=== PATIENT | female | born 1935 | race Caucasian/White ===

== ENCOUNTER → 2017-01-01 | Outpatient (CLI) | payer MEDICARE, OTHER ==
[2017-01-01 08:16] LABS: MEAN CORPUSCULAR HEMOGLOBIN 30.3 pg (27.0-33.0); MEAN CORPUSCULAR VOLUME 94.5 fl (80.0-96.0); RED CELL DISTRIBUTION WIDTH 11.9 % (11.5-14.5); WHITE BLOOD COUNT 6.9 K/mm3 (4.0-10.0)
[2017-01-01 08:46] LABS: ALBUMIN 3.5 GM/DL (3.2-5.2); ALBUMIN/GLOBULIN RATIO 1.21 (1.00-1.93); BILIRUBIN,TOTAL 0.5 MG/DL (0.2-1.0); CALCIUM LEVEL 8.2 MG/DL (8.8-10.2); CREATININE FOR GFR 1.48 MG/DL (0.55-1.02); GLOMERULAR FILTRATION RATE 36.2 (>39); POTASSIUM SERUM 4.4 MEQ/L (3.5-5.1); TOTAL PROTEIN 6.4 GM/DL (6.4-8.2)
== END ==
LOC: M LAB 07:27
PROVIDERS: ATTEND Family Medicine
DX: R19.04 Left lower quadrant abdominal swelling, mass and lump (principal); K57.32 Diverticulitis of large intestine without perforation or abscess without bleeding; Z79.899 Other long term (current) drug therapy

== ENCOUNTER → 2017-01-07 | Outpatient (CLI) | payer MEDICARE, OTHER ==
[~2017-01-07] MED LIST: GASTROGRAFIN SOLUTION 30ML (Q9963) As Ordered ONE; ISOVUE-370 76% 100ML VIAL (Q9967) As Ordered ONE
--- NOTE | 2017-01-07 16:49 | REP ---
CT ABDOMEN: REASON: History of left lower quadrant mass. COMPARISON EXAMINATION: None. CONTRAST UTILIZED: 100 mL Isovue-370. The precontrast enhanced portion of the examination shows the hepatic and splenic densities to be within normal limits. There is no cholelithiasis or nephrolithiasis. Contrast enhanced portion of the examination shows the liver, gallbladder, spleen, pancreas, adrenal glands, and kidneys to be within normal limits. There is an incidental centimeter sized cyst in the right kidney and an incidental subcentimeter sized cyst in the left kidney. The abdominal aorta and paraaortic regions are within normal limits for the patients age. Calcific atherosclerotic changes are seen in the abdominal aorta. There is no evidence of an intraabdominal mass or adenopathy. There is no free fluid or free air. The bowel loops and their mesenteries are within normal limits. CT PELVIS: High in the left adnexa along the pelvic sidewall there is a 2 cm sized low density structure which has water Hounsfield unit readings. There is extensive sigmoid colon diverticulosis. The bowel loops and mesenteries are otherwise unremarkable. No free fluid or free air is seen in the pelvis. Bone window technique throughout the exam shows age related spinal degenerative changes. IMPRESSION: 1. There is a small cyst in the pelvis as described above which is possibly of ovarian origin. Exact etiology is uncertain. Consider pelvic ultrasonography. 2. Sigmoid colon diverticulosis. 3. Incidental bilateral renal cysts. 4. Other findings as described above. Signed by Felipe Patel DO 01/08/2017 04:23 P
== END ==
LOC: M RAD 14:19
PROVIDERS: ATTEND Family Medicine
DX: R19.04 Left lower quadrant abdominal swelling, mass and lump (principal); K57.30 Diverticulosis of large intestine without perforation or abscess without bleeding
CPT/HCPCS: 74178; Q9963; Q9967

== ENCOUNTER → 2018-02-18 | Outpatient (CLI) | payer MEDICARE, OTHER ==
[2018-02-18 09:19] LABS: HEMATOCRIT 39.7 % (36.0-47.0); HEMOGLOBIN 12.6 g/dl (12.0-15.5); MEAN CORPUSCULAR HEMOGLOBIN 30.4 pg (27.0-33.0); MEAN CORPUSCULAR HGB CONC 31.7 g/dl (32.0-36.5); MEAN CORPUSCULAR VOLUME 95.7 fl (80.0-96.0); PLATELET COUNT, AUTOMATED 191 10^3/uL (150-450); RED BLOOD COUNT 4.15 10^6/uL (4.00-5.40); RED CELL DISTRIBUTION WIDTH 12.5 % (11.5-14.5); WHITE BLOOD COUNT 6.8 10^3/uL (4.0-10.0)
[2018-02-18 09:29] LABS: INR 0.97
[2018-02-18 09:44] LABS: ESTIMATED AVERAGE GLUCOSE 105 MG/DL (60-110); HEMOGLOBIN A1c 5.3 %
[2018-02-18 13:27] LABS: ALBUMIN 3.8 GM/DL (3.2-5.2); ALBUMIN/GLOBULIN RATIO 1.19 (1.00-1.93); ALKALINE PHOSPHATASE 87 U/L (45-117); ALT/SGPT 26 U/L (12-78); ANION GAP 9 MEQ/L (8-16); AST/SGOT 24 U/L (7-37); BILIRUBIN,TOTAL 0.7 MG/DL (0.2-1.0); BLOOD UREA NITROGEN 30 MG/DL (7-18); CALCIUM LEVEL 8.7 MG/DL (8.8-10.2); CARBON DIOXIDE LEVEL 26 MEQ/L (21-32); CHLORIDE LEVEL 109 MEQ/L (98-107); CHOLESTEROL LEVEL 196 MG/DL (<200); CHOLESTEROL RISK RATIO 3.062 (<5); CREATININE FOR GFR 1.47 MG/DL (0.55-1.30); GLOMERULAR FILTRATION RATE 36.4 (>32); GLUCOSE, FASTING 88 MG/DL (70-100); HDL CHOLESTEROL 64 MG/DL (>40); LDL CHOLESTEROL 107.4 MG/DL (<100); NON-HDL-C 132 MG/DL; POTASSIUM SERUM 4.7 MEQ/L (3.5-5.1); SODIUM LEVEL 144 MEQ/L (136-145); TRIGLYCERIDES LEVEL 123 MG/DL (<150)
== END ==
LOC: M LAB 08:48
DX: I10 Essential (primary) hypertension (principal); Z01.818 Encounter for other preprocedural examination; E03.9 Hypothyroidism, unspecified; E78.00 Pure hypercholesterolemia, unspecified; Z79.899 Other long term (current) drug therapy
CPT/HCPCS: 71046

== ENCOUNTER → 2018-08-27 | Outpatient (CLI) | payer MEDICARE, OTHER ==
[2018-08-27 09:43] LABS: HEMATOCRIT 41.6 % (36.0-47.0); HEMOGLOBIN 13.2 g/dl (12.0-15.5); MEAN CORPUSCULAR HEMOGLOBIN 30.5 pg (27.0-33.0); MEAN CORPUSCULAR HGB CONC 31.7 g/dl (32.0-36.5); MEAN CORPUSCULAR VOLUME 96.1 fl (80.0-96.0); PLATELET COUNT, AUTOMATED 192 10^3/uL (150-450); RED BLOOD COUNT 4.33 10^6/uL (4.00-5.40); WHITE BLOOD COUNT 6.9 10^3/uL (4.0-10.0)
[2018-08-27 10:25] LABS: ALBUMIN 3.8 GM/DL (3.2-5.2); BILIRUBIN,TOTAL 0.6 MG/DL (0.2-1.0); CHOLESTEROL RISK RATIO 3.283 (<5); CREATININE FOR GFR 1.53 MG/DL (0.55-1.30); GLOMERULAR FILTRATION RATE 34.7 (>32); POTASSIUM SERUM 4.7 MEQ/L (3.5-5.1); THYROID STIMULATING HORMONE 0.534 uIU/ML (0.358-3.740); TOTAL PROTEIN 6.8 GM/DL (6.4-8.2)
[2018-08-27 10:26] LABS: TOTAL 25(OH) VITAMIN D 30.5 NG/ML (30.0-100.0)
[2018-08-27 12:06] LABS: HEMOGLOBIN A1c 5.7 %
== END ==
LOC: M WUC 08:23
PROVIDERS: ATTEND Family Medicine
DX: D64.9 Anemia, unspecified (principal); R53.83 Other fatigue; E03.9 Hypothyroidism, unspecified

== ENCOUNTER → 2021-04-25 | Outpatient (REF) | payer MEDICARE, OTHER | LOC: M WUC 15:53 | PROVIDERS: ATTEND Physician Assistant | DX: N39.0 Urinary tract infection, site not specified (principal) ==

== ENCOUNTER → 2021-05-09 | Outpatient (REF) | payer MEDICARE, OTHER | LOC: M LAB REF 11:07 | PROVIDERS: ATTEND Physician Assistant | DX: N39.0 Urinary tract infection, site not specified (principal) ==

== ENCOUNTER 2021-08-18 12:11 | Emergency (ER) | payer MEDICARE, OTHER ==
[~2021-08-18] VITALS: Ht 157.5 cm; Wt 73.2 kg
--- OUTSIDE RECORDS SUMMARY | 2021-08-18 12:20 | CCD ---
Author Author [facility] Organization [facility] Address Unknown Phone Unavailable Care Team Providers Care Probation And Parole Officer Name Role Phone Stahl, Soha LIMNOLOGY TEACHER Unavailable Unavailable Stahl, Soha LIMNOLOGY TEACHER Unavailable Unavailable Stahl, Soha LIMNOLOGY TEACHER Unavailable Unavailable Stahl, Soha LIMNOLOGY TEACHER Unavailable Unavailable Stahl, Soha LIMNOLOGY TEACHER Unavailable Unavailable Stahl, Soha LIMNOLOGY TEACHER Unavailable Unavailable Stahl, Soha LIMNOLOGY TEACHER Unavailable Unavailable Stahl, Soha LIMNOLOGY TEACHER Unavailable Unavailable Stahl, Soha LIMNOLOGY TEACHER Unavailable Unavailable Stahl, Soha LIMNOLOGY TEACHER Unavailable Unavailable Stahl, Soha LIMNOLOGY TEACHER Unavailable Unavailable Stahl, Soha LIMNOLOGY TEACHER Unavailable Unavailable Stahl, Soha LIMNOLOGY TEACHER Unavailable Unavailable ROCIO, EMELYN PA Unavailable Unavailable ROCIO, EMELYN PA Unavailable Unavailable ROCIO, EMELYN PA Unavailable Unavailable ROCIO, EMELYN PA Unavailable Unavailable ROCIO, EMELYN PA Unavailable Unavailable ROCIO, EMELYN PA Unavailable Unavailable ROCIO, EMELYN PA Unavailable Unavailable ROCIO, EMELYN PA Unavailable Unavailable ROCIO, EMELYN PA Unavailable Unavailable ROCIO, EMELYN PA Unavailable Unavailable ROCIO, EMELYN PA Unavailable Unavailable ROCIO, EMELYN PA Unavailable Unavailable ROCIO, EMELYN PA Unavailable Unavailable ROCIO, EMELYN PA Unavailable Unavailable ROCIO, EMELYN PA Unavailable Unavailable ROCIO, EMELYN PA Unavailable Unavailable ROCIO, EMELYN PA Unavailable Unavailable ROCIO, EMELYN PA Unavailable Unavailable ROCIO, EMELYN PA Unavailable Unavailable ROCIO, EMELYN PA Unavailable Unavailable ROCIO, EMELYN PA Unavailable Unavailable ROCIO, EMELYN PA Unavailable Unavailable ROCIO, EMELYN PA Unavailable Unavailable ROCIO, EMELYN PA Unavailable Unavailable ROCIO, EMELYN PA Unavailable Unavailable ROCIO, EMELYN PA Unavailable Unavailable ROCIO, EMELYN PA Unavailable Unavailable ROCIO, EMELYN PA Unavailable Unavailable ROCIO, EMELYN PA Unavailable Unavailable ROCIO, EMELYN PA Unavailable Unavailable ROCIO, EMELYN PA Unavailable Unavailable ROCIO, EMELYN PA Unavailable Unavailable ROCIO, EMELYN PA Unavailable Unavailable ROCIO, EMELYN PA Unavailable Unavailable ROCIO, EMELYN PA Unavailable Unavailable ROCIO, EMELYN PA Unavailable Unavailable Re-disclosure Warning The records that you are about to access may contain information from federally-assisted alcohol or drug abuse programs. If such information is present, then the following federally mandated warning applies: This information has been disclosed to you from records protected by federal confidentiality rules (42 CFR part 2). The federal rules prohibit you from making any further disclosure of this information unless further disclosure is expressly permitted by the written consent of the person to whom it pertains or as otherwise permitted by 42 CFR part 2. A general authorization for the release of medical or other information is NOT sufficient for this purpose. The Federal rules restrict any use of the information to criminally investigate or prosecute any alcohol or drug abuse patient.The records that you are about to access may contain highly sensitive health information, the redisclosure of which is protected by Article 27-F of the [place] Public Health law. If you continue you may have access to information: Regarding HIV / AIDS; Provided by facilities licensed or operated by the [place] Office of Mental Health; or Provided by the [place] Office for People With Developmental Disabilities. If such information is present, then the following [place] [facility] mandated warning applies: This information has been disclosed to you from confidential records which are protected by state law. State law prohibits you from making any further disclosure of this information without the specific written consent of the person to whom it pertains, or as otherwise permitted by law. Any unauthorized further disclosure in violation of state law may result in a fine or senior living sentence or both. A general authorization for the release of medical or other information is NOT sufficient authorization for further disc losure. Family History Family Member Name Family Member Gender Family Member Status Date o f Status Description Data Source(s) Unknown Unknown Problem [facility] ([facility]) Unknown Unknown Problem [facility] ([facility]) Encounters Encounter Providers Location Date Indications Data Source(s ) Outpatient Attender: EMELYN Mandujano ry 05/09/2021 08:05:00 AM EDT [facility] ([facility]) Outpatient Attender: EMELYN Mandujano ry 04/25/2021 10:45:00 AM EDT [facility] ([facility]) Outpatient Attender: Soha riley 03/19/2021 02:50:00 PM EDT [facility] ([facility]) Immunizations Vaccine Date Status Description Data Source(s) COVID-19 VACCINE Moderna 08/08/2021 12:00:00 AM EST completed [facility] Vaccine Series Complete: YESThis Data wa s Submitted to [facility] [employer]. COVID-19 VACCINE Moderna 02/05/2021 12:00:00 AM EDT completed [facility] Vaccine Series Complete: YESThis Data wa s Submitted to [facility] [employer]. COVID-19 VACCINE Moderna 01/08/2021 12:00:00 AM EDT completed [facility] Vaccine Series Complete: NOThis Data was Submitted to [facility] [employer]. Medications Medication Brand Name Start Date Product Form Dose Route Admi nistrative Instructions Pharmacy Instructions Status Indications Reaction Description Data Source(s) NITROFURANTOIN, MACROCRYSTALS 25 MG / Ni trofurantoin, Monohydrate 75 MG Oral Capsule [Macrobid] Macrobid 05/09/2021 12:00:00 AM EDT ORAL active [facility] ([facility]) NITROFURANTOIN, MACROCRYSTALS 25 MG / Ni trofurantoin, Monohydrate 75 MG Oral Capsule [Macrobid] Macrobid 04/25/2021 12:00:00 AM EDT ORAL completed [facility] ([facility]) valacyclovir 1000 MG Oral Tablet Valacyclovir HCL 03/19/2021 12:00: 00 AM EDT completed [facility] ([facility], [facility]) Insurance Providers Payer name Policy type / Coverage type Policy ID Covered democrat ID Covered democrat's relationship to barboza Policy Barboza Plan Information [id number] MEDICARE [id number] SP [id number] MEDICARE [id number] SP [id number] MEDICARE - [place] [id number] S [id number] R O [id number] S [id number] MEDICARE C [id number] S [id number] [facility] [id number] SP [id number] [employer]OM[employer] [id number] SP [id number] Medicare Natl Gov't Servi Medicare Primary [id number] Self [place] Medigap Part B [id number] Self [employer] PPO O [id number] S [id number] Medicare [place] Primary [id number] Self [id number] [place] Medigap Part B [id number] Self [id number] [facility] [id number] SP [id number] [facility] [id number] S [id number] [employer] [id number] S [id number] Problems, Conditions, and Diagnoses No Information Surgeries/Procedures Procedure Description Date Indications Data Source(s) OFFICE OUTPATIENT VISIT 15 MINUTES 05/09/2021 12:00:00 AM EDT [facility] ([facility], [facility]) OFFICE OUTPATIENT VISIT 15 MINUTES 04/25/2021 12:00:00 AM EDT [facility] ([facility], [facility]) OFFICE OUTPATIENT NEW 30 MINUTES 03/19/2021 12:00:00 A M EDT [facility] ([facility], [facility]) Results ID Date Data Source [id number] 05/09/2021 09:58:00 AM EDT [facility] ([facility], [facility]) Name Value Range Interpretation Code Description Data Brenda rce(s) Supporting Document(s) Bacteria identified in Urine by Culture Laboratory test result [facility] ([facility], [facility]) Rx Macrobid ID Date Data Source [id number] 04/25/2021 11:19:00 AM EDT [facility] ([facility]) Name Value Range Interpretation Code Description Data Brenda rce(s) Supporting Document(s) Bacteria identified in Urine by Culture Laboratory test result [facility] ([facility], [facility]) <content>FULL REPORT IN LAB NOTES ([facility] a nd [facility]).</content>
<content></content>
<content>ORGANISM 1: ESCHERICHIA COLI</content>
<content></content>
<content>COLONY COUNT > 100,000</content>
<content></content>
<content></content>
<content>O RGANISM 1: ESCHERICHIA COLI</content>
<content></content>
<content> ESCHERICHIA COLI: REACTION</content>
<content>TRIMETHOPRIM/SULFAMETHOXAZOLE IV 160mg TMP & 800mg SMXq6h <=20 S</content>
<content> TRIMETHOPRIM/SULFAMETHOXAZOLE PO Bactrim DS Bid <=20 S</content>
<content>AMPICILLIN IV 500mg q6h >=32 R</content>
<content>AMPICILLIN PO 500mg q6h fasting >=32 R</content>
<content>GENTAMICIN IV 80mg q8h <=1 S</content>
<content>NITROFURANTOIN PO 100mg BID <=16 S</content>
<content>CEFAZOLIN IV 1gm q8h <=4 S</content>
<content>LEVOFLOXACIN IV 500mg qd <=0.12 S</content>
<content>LEVOFLOXACIN PO 250mg qd <=0.12 S</content>
<content>LEVOFLOXACIN PO 500mg qd <=0.12 S</content>
<content>TOBRAMYCIN IV 80mg q8h <=1 S</content>
<content> CEFTRIAXONE IV 1gm q24h <=1 S</content>
<content>CEFTAZIDIME IV 1gm q8h <=1 S</content>
<content>AMPICILLIN/SULBACTAM IV 1.5g q6h 16 I</content>
<content>PIPERACILLIN/TAZOBACTAM IV 2.25 gm q6h <=4 S</content>
<content>AZTREONAM IV 1gm q8h <=1 S</content>
<content>ERTAPENEM IV 1gm qd <=0.5 S</content>
<content> MEROPENEM IV 1 gm q8h <=0.25 S</content>
<content>MEROPENEM IV 500 mg q8h <=0.25 S</content>
<content>TIGECYCLINE IV 50mg q12h <=0.5 S</content>
<content>CEFEPIME IV 1 gm q12h <=1 S</content>
<content>CEFEPIME IV 2 gm q12h <=1 S</content>
<content>EXTD BRD SPCTRM BETA LACTAMASE IV NEGATIVE FOR ESBL</content>
<content></content> Procedure Social History Code Duration Value Status Description Data Source(s ) Smoking 05/09/2021 12:00:00 AM EDT Patient is a former smoker completed Patient is a former smoker [facility]) Vital Signs ID Date Data Source UNK Name Value Range Interpretation Code Description Data Source(s) Body temperature 98.1 [degF] 98.1 [degF] [facility] ([facility]) Body weight 160.00 [lb_av] 160.00 [lb_av] [facility] T ([facility]) Systolic blood pressure 129 mm[Hg] 129 mm[Hg] M EDENT ([facility]) Diastolic blood pressure 85 mm[Hg] 85 mm[Hg] [facility] Heart rate 65 /min 65 /min [facility] ([facility], [facility]) Respiratory rate 14 /min 14 /min [facility] ( [facility], [facility]) Oxygen saturation in Arterial blood by Pulse oximetry 98 % 98 % [facility] ([facility], [facility]) Body height 62 [in_i] 62 [in_i] [facility] ([facility], [facility]) 5'2" Body mass index (BMI) [Ratio] 29.3 kg/m2 29.3 k g/m2 [facility] ([facility], [facility]) Body height 62 [in_i] 62 [in_i] [facility] ([facility], [facility]) 5'2" Body weight 160.00 [lb_av] 160.00 [lb_av] [facility] T ([facility], [facility]) Diastolic blood pressure 82 mm[Hg] 82 mm[Hg] [facility] ([facility], [facility]) Heart rate 64 /min 64 /min [facility] ([facility], [facility]) Respiratory rate 16 /min 16 /min [facility] ( [facility], [facility]) Oxygen saturation in Arterial blood by Pulse oximetry 98 % 98 % [facility] ([facility], [facility]) Body temperature 98.0 [degF] 98.0 [degF] [facility] ([facility], [facility]) Body mass index (BMI) [Ratio] 29.3 kg/m2 29.3 k g/m2 [facility] ([facility], [facility]) Systolic blood pressure 143 mm[Hg] 143 mm[Hg] M [facility] ([facility], [facility]) Systolic blood pressure 109 mm[Hg] 109 mm[Hg] M [facility] ([facility], [facility]) Diastolic blood pressure 64 mm[Hg] 64 mm[Hg] [facility] ([facility], [facility]) Heart rate 64 /min 64 /min [facility] ([facility]) Respiratory rate 14 /min 14 /min [facility] ( [facility], [facility]) Oxygen saturation in Arterial blood by Pulse oximetry 97 % 97 % [facility] ([facility], [facility]) Body temperature 96.2 [degF] 96.2 [degF] [facility] ([facility], [facility]) Body weight 160.00 [lb_av] 160.00 [lb_av] [facility] T ([facility], [facility]) Body height 62 [in_i] 62 [in_i] [facility] ([facility], [facility]) 5'2" Body mass index (BMI) [Ratio] 29.3 kg/m2 29.3 k g/m2 [facility] ([facility], [facility])
--- NOTE | 2021-08-18 12:53 | REP ---
INDICATION: fall, injury, include shoulder/clavicle. COMPARISON: Comparison is made with shows the left proximal humerus on February 18, 2018. Chest radiograph which TECHNIQUE: Three views of the left humerus are provided. FINDINGS: Three views of the left humerus demonstrate an impacted fracture of the surgical neck of the left humerus with some comminution but no displacement. The glenohumeral and acromioclavicular joints are normally aligned. No scapular or clavicle fracture is appreciated. No opaque foreign body noted. IMPRESSION: Impacted fracture surgical neck left humerus. <Electronically signed by Satish Benjamin > 08/18/21 [id number]
[2021-08-18] MEDS ORDERED: ACETAMINOPHEN 500 MG TAB PO ONE (13:30)
[2021-08-18] MEDS ORDERED: ACET-683 PO (13:31)
--- OUTSIDE RECORDS SUMMARY | 2021-08-18 13:54 | CCD ---
Author Author [facility] Organization [facility] Address Unknown Phone Unavailable Care Team Providers Care Cylinder Tester Name Role Phone Stahl, Soha EMPLOYEE ADVISER Unavailable Unavailable Stahl, Soha EMPLOYEE ADVISER Unavailable Unavailable Stahl, Soha EMPLOYEE ADVISER Unavailable Unavailable Stahl, Soha EMPLOYEE ADVISER Unavailable Unavailable Stahl, Soha EMPLOYEE ADVISER Unavailable Unavailable Stahl, Soha EMPLOYEE ADVISER Unavailable Unavailable Stahl, Soha EMPLOYEE ADVISER Unavailable Unavailable Stahl, Soha EMPLOYEE ADVISER Unavailable Unavailable Stahl, Shoa EMPLOYEE ADVISER Unavailable Unavailable Stahl, Soha EMPLOYEE ADVISER Unavailable Unavailable Stahl, Soha EMPLOYEE ADVISER Unavailable Unavailable Stahl, Soha EMPLOYEE ADVISER Unavailable Unavailable Stahl, Soha EMPLOYEE ADVISER Unavailable Unavailable ROCIO, EMELYN PA Unavailable Unavailable [...] Unavailable Unavailable ROCIO, EMELYN PA Unavailable Unavailable ROICO, EMELYN PA Unavailable Unavailable ROCIO, EMELYN PA [...] is protected by Article 27-F of the [facility] Public Health law. If you continue you may have access to information: Regarding HIV / AIDS; Provided by facilities licensed or operated by the [facility] Office of Mental Health; or Provided by the [facility] Office for People With Developmental Disabilities. If such information is present, then the following [facility] mandated warning applies: This information has been [...] law may result in a fine or alf sentence or both. A general authorization for [...] Mandujano ry 05/09/2021 08:05:00 AM EDT [facility] ([facility]) Outpatient Attender: EMELYN Mandujano ry 04/25/2021 10:45:00 AM EDT [facility] ([facility]) Outpatient Attender: Soha riley 03/19/2021 02:50:00 PM EDT [facility] ([facility]) Immunizations Vaccine Date Status Description Data Source(s) COVID-19 VACCINE Moderna 08/08/2021 12:00:00 AM EST completed [facility] Vaccine Series Complete: YESThis Data wa s Submitted to [facility] [employer]. COVID-19 VACCINE Moderna 02/05/2021 12:00:00 AM EDT completed [facility] Vaccine Series Complete: YESThis Data wa s Submitted to [facility] [employer]. COVID-19 VACCINE Moderna 01/08/2021 12:00:00 AM EDT completed [facility] Vaccine Series Complete: NOThis Data was Submitted to [facility] [employer]. Medications Medication Brand Name Start Date Product Form Dose Route Admi nistrative Instructions Pharmacy Instructions Status Indications Reaction Description Data Source(s) NITROFURANTOIN, MACROCRYSTALS 25 MG / Ni trofurantoin, Monohydrate 75 MG Oral Capsule [Macrobid] Macrobid 05/09/2021 12:00:00 AM EDT ORAL active [facility] ([facility]) NITROFURANTOIN, MACROCRYSTALS 25 MG / Ni trofurantoin, Monohydrate 75 MG Oral Capsule [Macrobid] Macrobid 04/25/2021 12:00:00 AM EDT ORAL completed [facility] ([facility]) valacyclovir 1000 MG Oral Tablet Valacyclovir HCL 03/19/2021 12:00: 00 AM EDT completed [facility] ([facility]) Insurance Providers Payer name Policy type / Coverage type Policy ID Covered republican ID Covered republican's relationship to barboza Policy [employer] Plan Information [id number] MEDICARE [id number] SP [id number] MEDICARE [id number] SP [id number] MEDICARE - [place] [id number] S [id number] R O [id number] S [id number] MEDICARE C [id number] S [id number] [facility] [id number] SP [id number] [employer] [id number] SP [id number] Medicare Natl Gov't Servi Medicare Primary [id number] Self [place] Medigap Part B [id number] Self [employer] PPO O [id number] S [id number] Medicare [place] Primary [id number] Self [id number] [employer] Medigap Part B [id number] Self [id number] [facility] [id number] SP [id number] [facility] [id number] S [id number] [facility] [id number] S [id number] Problems, Conditions, and Diagnoses No Information Surgeries/Procedures Procedure Description Date Indications Data Source(s) OFFICE OUTPATIENT VISIT 15 MINUTES 05/09/2021 12:00:00 AM EDT [facility] ([facility]) OFFICE OUTPATIENT VISIT 15 MINUTES 04/25/2021 12:00:00 AM EDT [facility] ([facility]) OFFICE OUTPATIENT NEW 30 MINUTES 03/19/2021 12:00:00 A M EDT [facility] ([facility]) Results ID Date Data Source [id number] 05/09/2021 09:58:00 AM EDT [facility] ([facility]) Name Value Range Interpretation Code Description Data Brenda rce(s) Supporting Document(s) Bacteria identified in Urine by Culture Laboratory test result [facility] ([facility], [facility]) Rx Macrobid ID Date Data Source [id number] 04/25/2021 11:19:00 AM EDT [facility] ([facility]) Name Value Range Interpretation Code Description Data Brenda rce(s) Supporting Document(s) Bacteria identified in Urine by Culture Laboratory test result [facility] ([facility], [facility]) <content>FULL REPORT IN LAB NOTES (eCW [...] smoker completed Patient is a former smoker [facility] ([facility]) Vital Signs ID Date Data Source UNK Name Value Range Interpretation Code Description Data Source(s) Body temperature 98.1 [degF] 98.1 [degF] [facility] ([facility]) Body weight 160.00 [lb_av] 160.00 [lb_av] [facility] ([facility]) Body height 62 [in_i] 62 [in_i] [facility] ([facility]) 5'2" Systolic blood pressure 129 mm[Hg] 129 mm[Hg] [facility] Diastolic blood pressure 85 mm[Hg] 85 mm[Hg] [facility] ([facility]) Heart rate 65 /min 65 /min [facility]) Respiratory rate 14 /min 14 /min [facility] ( [facility]) Oxygen saturation in Arterial blood by Pulse oximetry 98 % 98 % [facility] ([facility]) Body mass index (BMI) [Ratio] 29.3 kg/m2 29.3 k g/m2 [facility] ([facility]) Body height 62 [in_i] 62 [in_i] [facility] ([facility]) 5'2" Body weight 160.00 [lb_av] 160.00 [lb_av] [facility] ([facility], [facility]) Diastolic blood pressure 82 mm[Hg] 82 mm[Hg] [facility] ([facility]) Heart rate 64 /min 64 /min [facility] ([facility]) Systolic blood pressure 143 mm[Hg] 143 mm[Hg] M [facility] ([facility], [facility]) Respiratory rate 16 /min 16 /min [facility] ( [facility]) Oxygen saturation in Arterial blood by [facility]ulse oximetry 98 % 98 % [facility] Body temperature 98.0 [degF] 98.0 [degF] [facility] ([facility]) Body mass index (BMI) [Ratio] 29.3 kg/m2 29.3 k g/m2 [facility] ([facility], [facility]) Systolic blood pressure 109 mm[Hg] 109 mm[Hg] M [facility] ([facility], [facility]) Diastolic blood pressure 64 mm[Hg] 64 mm[Hg] [facility] ([facility]) Heart rate 64 /min 64 /min [facility] ([facility]) Respiratory rate 14 /min 14 /min [facility] ( [facility]) Oxygen saturation in Arterial blood by Pulse oximetry 97 % 97 % [facility] ([facility], [facility]) Body temperature 96.2 [degF] 96.2 [degF] [facility] ([facility], [facility]) Body weight 160.00 [lb_av] 160.00 [lb_av] [facility] ([facility], [facility]) Body height 62 [in_i] 62 [in_i] [facility] ([facility], [facility]) 5'2" Body mass index (BMI) [Ratio] 29.3 kg/m2 29.3 k g/m2 [facility] ([facility], [facility])
[2021-08-18 14:07] VITALS: BP 141/68
== END 2021-08-18 14:09 | disposition home or self-care (01) ==
LOC: M ED 12:11
DX: S42.292A Other displaced fracture of upper end of left humerus, initial encounter for closed fracture (principal); W01.0XXA Fall on same level from slipping, tripping and stumbling without subsequent striking against object, initial encounter; Y92.018 Other place in single-family (private) house as the place of occurrence of the external cause; I10 Essential (primary) hypertension; E03.9 Hypothyroidism, unspecified; Z88.1 Allergy status to other antibiotic agents; Z88.2 Allergy status to sulfonamides; Z87.891 Personal history of nicotine dependence

== ENCOUNTER → 2021-08-22 | Outpatient (CLI) | payer MEDICARE, OTHER ==
[~2021-08-22] MED LIST changes: +ACET-683 PO; -GASTROGRAFIN SOLUTION 30ML (Q9963) As Ordered ONE; -ISOVUE-370 76% 100ML VIAL (Q9967) As Ordered ONE
--- NOTE | 2021-08-22 12:41 | REP ---
INDICATION: LT HUMERUS FX. COMPARISON: None. TECHNIQUE: Two views of the left shoulder FINDINGS: There is a comminuted impacted fracture through the humeral neck. Associated anterior subluxation on Y-view suggested. IMPRESSION: Comminuted impacted fracture through the humeral neck. <Electronically signed by Rolando Lange > 08/22/21 1122
== END ==
LOC: M SOG 10:38
PROVIDERS: ATTEND Orthopaedic Surgery
DX: S42.222A 2-part displaced fracture of surgical neck of left humerus, initial encounter for closed fracture (principal); Y92.9 Unspecified place or not applicable; Y93.9 Activity, unspecified; Y99.9 Unspecified external cause status

== ENCOUNTER → 2021-09-05 | Outpatient (CLI) | payer MEDICARE, OTHER ==
--- NOTE | 2021-09-05 12:03 | REP ---
INDICATION: LT HUMERUS FX. COMPARISON: 08/22/2020 TECHNIQUE: Two views FINDINGS: The previously described proximal humeral fracture is again identified with indistinct margins and callus formation consistent with healing. There is no significant change in the appearance of alignment. IMPRESSION: Healing fracture as described above. <Electronically signed by Felipe Patel > 09/05/21 1200
== END ==
LOC: M SOG 07:50
PROVIDERS: ATTEND Orthopaedic Surgery
DX: S42.222A 2-part displaced fracture of surgical neck of left humerus, initial encounter for closed fracture (principal); W19.XXXA Unspecified fall, initial encounter; Y92.9 Unspecified place or not applicable

== ENCOUNTER → 2021-11-06 | Outpatient (CLI) | payer MEDICARE, OTHER | LOC: M SOG 10:29 | PROVIDERS: ATTEND Orthopaedic Surgery | DX: S42.222P 2-part displaced fracture of surgical neck of left humerus, subsequent encounter for fracture with malunion (principal) ==

== ENCOUNTER → 2022-05-14 | Outpatient (CLI) | payer MEDICARE, OTHER ==
[2022-05-14 13:53] LABS: BASO # 0.1 10^3/uL (0.0-0.2); BASO % 0.8 % (0.0-1.0); EOS # 0.3 10^3/uL (0.0-0.5); EOS % 3.6 % (0.0-3.0); HEMATOCRIT 43.3 % (36.0-47.0); HEMOGLOBIN 13.4 g/dl (12.0-15.5); LYMPH # 1.6 10^3/uL (1.5-5.0); LYMPH % 21.7 % (24.0-44.0); MEAN CORPUSCULAR HEMOGLOBIN 30.9 pg (27.0-33.0); MEAN CORPUSCULAR HGB CONC 30.9 g/dl (32.0-36.5); MEAN CORPUSCULAR VOLUME 99.8 fl (80.0-96.0); MONO # 0.7 10^3/uL (0.0-0.8); MONO % 9.1 % (2.0-8.0); NEUTROPHILS # 4.7 10^3/uL (1.5-8.5); NEUTROPHILS % 64.5 % (36.0-66.0); PLATELET COUNT, AUTOMATED 221 10^3/uL (150-450); RED BLOOD COUNT 4.34 10^6/uL (4.00-5.40); WHITE BLOOD COUNT 7.2 10^3/uL (4.0-10.0)
[2022-05-14 14:13] LABS: ALBUMIN 3.9 GM/DL (3.2-5.2); BILIRUBIN,TOTAL 0.6 MG/DL (0.2-1.0); CALCIUM LEVEL 9.2 MG/DL (8.8-10.2); CHOLESTEROL RISK RATIO 3.35 (<5); CREATININE FOR GFR 1.72 MG/DL (0.55-1.30); POTASSIUM SERUM 4.8 MEQ/L (3.5-5.1); THYROID STIMULATING HORMONE 16.3 uIU/ML (0.358-3.740)
[2022-05-14 15:10] LABS: HEMOGLOBIN A1c 5.5 %
== END ==
LOC: M PLALAB 09:48
PROVIDERS: ATTEND Physician Assistant Medical
DX: E78.5 Hyperlipidemia, unspecified (principal); I10 Essential (primary) hypertension; E03.9 Hypothyroidism, unspecified; F01.50 Vascular dementia, unspecified severity, without behavioral disturbance, psychotic disturbance, mood disturbance, and anxiety; Z13.1 Encounter for screening for diabetes mellitus; Z79.899 Other long term (current) drug therapy

== ENCOUNTER → 2022-06-03 | Outpatient (REF) | payer MEDICARE, OTHER | LOC: M SFHCPLAZ 13:01 | PROVIDERS: ATTEND Physician Assistant | DX: R30.0 Dysuria (principal) ==

== ENCOUNTER → 2023-02-16 | Outpatient (CLI) | payer MEDICARE, OTHER ==
[2023-02-16 14:13] LABS: APPEARANCE, URINE MANUAL CLEAR (CLEAR); BILIRUBIN, URINE MANUAL NEGATIVE (NEGATIVE); BLOOD URINE MANUAL NEGATIVE (NEGATIVE); COLOR, URINE MANUAL YELLOW (YELLOW); GLUCOSE, URINE (UA) MANUAL NEGATIVE (NEGATIVE); KETONE, URINE MANUAL NEGATIVE (NEGATIVE); LEUKOCYTE ESTERASE, URINE MAN NEGATIVE (NEGATIVE); NITRITE, URINE MANUAL NEGATIVE (NEGATIVE); PROTEIN, URINE MANUAL NEGATIVE (NEGATIVE); UROBILINOGEN, URINE MANUAL NORMAL (NORMAL)
[2023-02-16 14:15] LABS: BASO % 0.5 % (0.0-1.0); EOS # 0.3 10^3/uL (0.0-0.5); EOS % 3.9 % (0.0-3.0); HEMATOCRIT 41.4 % (36.0-47.0); HEMOGLOBIN 12.6 g/dl (12.0-15.5); LYMPH # 1.4 10^3/uL (1.5-5.0); LYMPH % 16.6 % (24.0-44.0); MEAN CORPUSCULAR HEMOGLOBIN 29.9 pg (27.0-33.0); MEAN CORPUSCULAR HGB CONC 30.4 g/dl (32.0-36.5); MEAN CORPUSCULAR VOLUME 98.1 fl (80.0-96.0); MONO # 0.8 10^3/uL (0.0-0.8); MONO % 9.1 % (2.0-8.0); NEUTROPHILS # 5.9 10^3/uL (1.5-8.5); NEUTROPHILS % 69.5 % (36.0-66.0); PLATELET COUNT, AUTOMATED 201 10^3/uL (150-450); RED BLOOD COUNT 4.22 10^6/uL (4.00-5.40); WHITE BLOOD COUNT 8.5 10^3/uL (4.0-10.0)
[2023-02-16 14:24] LABS: HEMOGLOBIN A1c 5.5 % (4.0-6.0)
[2023-02-16 14:25] LABS: THYROID STIMULATING HORMONE 1.418 uIU/ML (0.55-4.78)
[2023-02-16 14:26] LABS: FREE T4 1.04 NG/DL (0.89-1.76)
[2023-02-16 14:27] LABS: ALBUMIN 3.8 G/DL (3.2-5.2); BILIRUBIN,TOTAL 0.6 MG/DL (0.3-1.2); CALCIUM LEVEL 8.7 MG/DL (8.3-10.6); CHOLESTEROL RISK RATIO 3.08 (<5); CREATININE FOR GFR 1.46 MG/DL (0.55-1.30); GLOMERULAR FILTRATION RATE 36.2 (>32); LDL CHOLESTEROL 81.4 MG/DL (<100); POTASSIUM SERUM 4.9 MMOL/L (3.5-5.1); TOTAL PROTEIN 6.5 G/DL (5.7-8.2)
== END ==
LOC: M PLALAB 10:41
PROVIDERS: ATTEND Physician Assistant Medical
DX: R30.0 Dysuria (principal); E03.9 Hypothyroidism, unspecified; F32.A Depression, unspecified; I10 Essential (primary) hypertension; E78.5 Hyperlipidemia, unspecified; Z13.1 Encounter for screening for diabetes mellitus; Z79.899 Other long term (current) drug therapy

== ENCOUNTER 2023-03-30 22:58 | Emergency (ER) | payer MEDICARE, OTHER ==
[~2023-03-30] VITALS: Ht 157.5 cm; Wt 76.9 kg
[2023-03-30 22:58] VITALS: BP 189/79; TEMP 96.8; O2SAT 97
[2023-03-30] MEDS ORDERED: DONE10TA90 PO (23:06)
[2023-03-30] MEDS ORDERED: ATOR1TAB19 PO (23:06)
[2023-03-30] MEDS ORDERED: LEVO125T4 PO (23:06)
[2023-03-30] MEDS ORDERED: PARO5TAB PO (23:06)
[2023-03-30] MEDS ORDERED: ATEN50TA2 PO (23:06)
== END 2023-03-31 00:37 | disposition left against medical advice (07) ==
LOC: M ED 22:58
DX: Z53.21 Procedure and treatment not carried out due to patient leaving prior to being seen by health care provider (principal)

== ENCOUNTER → 2024-04-19 | Outpatient (CLI) | payer MEDICARE, OTHER ==
[~2024-04-19] MED LIST changes: +ATEN50TA2 PO; +ATOR1TAB19 PO; +DONE10TA90 PO; +LEVO125T4 PO; +PARO5TAB PO
[2024-04-19 13:09] LABS: BASO # 0.1 10^3/uL (0.0-0.2); BASO % 0.8 % (0.0-1.0); EOS # 0.5 10^3/uL (0.0-0.5); EOS % 6.2 % (0.0-3.0); HEMATOCRIT 38.9 % (36.0-47.0); HEMOGLOBIN 12.1 g/dl (12.0-15.5); LYMPH # 1.4 10^3/uL (1.5-5.0); LYMPH % 17.2 % (24.0-44.0); MEAN CORPUSCULAR HEMOGLOBIN 29.7 pg (27.0-33.0); MEAN CORPUSCULAR HGB CONC 31.1 g/dl (32.0-36.5); MEAN CORPUSCULAR VOLUME 95.3 fl (80.0-96.0); MONO # 0.8 10^3/uL (0.0-0.8); MONO % 10.4 % (2.0-8.0); NEUTROPHILS # 5.1 10^3/uL (1.5-8.5); NEUTROPHILS % 65.3 % (36.0-66.0); PLATELET COUNT, AUTOMATED 218 10^3/uL (150-450); RED BLOOD COUNT 4.08 10^6/uL (4.00-5.40); WHITE BLOOD COUNT 7.9 10^3/uL (4.0-10.0)
[2024-04-19 13:25] LABS: HEMOGLOBIN A1c 5.4 % (4.0-6.0)
[2024-04-19 13:33] LABS: ALBUMIN 3.6 G/DL (3.2-5.2); BILIRUBIN,TOTAL 0.8 MG/DL (0.3-1.2); CALCIUM LEVEL 9.1 MG/DL (8.3-10.6); CHOLESTEROL RISK RATIO 3.53 (<5); CREATININE FOR GFR 1.66 MG/DL (0.55-1.30); GLOMERULAR FILTRATION RATE 31.1 (>32); HDL CHOLESTEROL 45.2 MG/DL (>40); LDL CHOLESTEROL 95.4 MG/DL (<100); NON-HDL-C 114.8 MG/DL; POTASSIUM SERUM 4.7 MMOL/L (3.5-5.1); TOTAL PROTEIN 6.7 G/DL (5.7-8.2)
[2024-04-19 13:35] LABS: FREE T4 1.36 NG/DL (0.89-1.76); THYROID STIMULATING HORMONE 0.098 uIU/ML (0.55-4.78)
== END ==
LOC: M WUC 10:23
PROVIDERS: ATTEND Physician Assistant Medical
DX: E78.5 Hyperlipidemia, unspecified (principal); E03.9 Hypothyroidism, unspecified; F41.9 Anxiety disorder, unspecified; Z13.1 Encounter for screening for diabetes mellitus; I10 Essential (primary) hypertension

== ENCOUNTER 2024-10-09 11:48 | Emergency (ER) | payer MEDICARE, OTHER ==
[~2024-10-09] VITALS: Ht 160 cm; Wt 71.4 kg
[2024-10-09 12:43] LABS: BASO % 0.4 % (0.0-1.0); EOS # 0.1 10^3/uL (0.0-0.5); EOS % 0.6 % (0.0-3.0); HEMATOCRIT 40.5 % (36.0-47.0); HEMOGLOBIN 12.8 g/dl (12.0-15.5); LYMPH # 0.7 10^3/uL (1.5-5.0); LYMPH % 6.5 % (24.0-44.0); MEAN CORPUSCULAR HEMOGLOBIN 29.8 pg (27.0-33.0); MEAN CORPUSCULAR HGB CONC 31.6 g/dl (32.0-36.5); MEAN CORPUSCULAR VOLUME 94.4 fl (80.0-96.0); MONO # 0.5 10^3/uL (0.0-0.8); MONO % 4.2 % (2.0-8.0); NEUTROPHILS # 9.5 10^3/uL (1.5-8.5); NEUTROPHILS % 87.8 % (36.0-66.0); PLATELET COUNT, AUTOMATED 222 10^3/uL (150-450); RED BLOOD COUNT 4.29 10^6/uL (4.00-5.40); WHITE BLOOD COUNT 10.9 10^3/uL (4.0-10.0)
[2024-10-09 13:07] LABS: LIPASE 49 U/L (12-53)
[2024-10-09 13:10] LABS: ALBUMIN 3.4 G/DL (3.2-5.2); ALKALINE PHOSPHATASE 118 U/L (35-104); ALT/SGPT < 9 U/L (7.0-40); AST/SGOT 15 U/L (<34); BILIRUBIN,DIRECT 0.2 MG/DL (<0.4); BILIRUBIN,TOTAL 0.8 MG/DL (0.3-1.2); BLOOD UREA NITROGEN 31 MG/DL (9-23); CALCIUM LEVEL 8.7 MG/DL (8.3-10.6); CARBON DIOXIDE LEVEL 28 MMOL/L (20-31); CHLORIDE LEVEL 104 MMOL/L (98-107); CREATININE FOR GFR 1.77 MG/DL (0.55-1.30); GLOMERULAR FILTRATION RATE 28.9 (>32); GLUCOSE, FASTING 201 MG/DL (74-106); POTASSIUM SERUM 3.9 MMOL/L (3.5-5.1); SODIUM LEVEL 143 MMOL/L (136-145); TOTAL PROTEIN 6.7 G/DL (5.7-8.2)
[2024-10-09 13:12] LABS: THYROID STIMULATING HORMONE 0.294 uIU/ML (0.55-4.78)
[2024-10-09 13:38] LABS: FREE T4 1.39 NG/DL (0.89-1.76)
[2024-10-09] MEDS: NS 500 ML IV ONE (14:48)
[2024-10-09 15:50] VITALS: BP 188/76; TEMP 97.2; O2SAT 98
== END 2024-10-09 15:58 | disposition home or self-care (01) ==
LOC: EDBD 11:48 → M ED 11:48
DX: R00.1 Bradycardia, unspecified (principal); R03.0 Elevated blood-pressure reading, without diagnosis of hypertension; E03.9 Hypothyroidism, unspecified; I10 Essential (primary) hypertension; E78.5 Hyperlipidemia, unspecified; F41.9 Anxiety disorder, unspecified; F03.90 Unspecified dementia, unspecified severity, without behavioral disturbance, psychotic disturbance, mood disturbance, and anxiety; Z79.899 Other long term (current) drug therapy; Z88.2 Allergy status to sulfonamides; Z88.8 Allergy status to other drugs, medicaments and biological substances

== ENCOUNTER → 2025-04-19 | Outpatient (REF) | payer MEDICARE, OTHER ==
[2025-04-19 17:49] LABS: CHOLESTEROL LEVEL 166.0 MG/DL (<200); CHOLESTEROL RISK RATIO 2.92 (<5); LDL CHOLESTEROL 90.1 MG/DL (<100); NON-HDL-C 109.3 MG/DL; TRIGLYCERIDES LEVEL 96.0 MG/DL (<150)
[2025-04-19 17:51] LABS: FREE T4 0.82 NG/DL (0.89-1.76)
== END ==
LOC: M SFHCPLAZ 14:45
PROVIDERS: ATTEND Physician Assistant Medical
DX: E78.5 Hyperlipidemia, unspecified (principal); E03.9 Hypothyroidism, unspecified

== ENCOUNTER → 2025-06-14 | Outpatient (CLI) | payer MEDICARE, OTHER ==
[2025-06-14 14:52] LABS: FREE T4 1.37 NG/DL (0.89-1.76)
== END ==
LOC: M WUC 10:20
PROVIDERS: ATTEND Physician Assistant Medical
DX: E03.9 Hypothyroidism, unspecified (principal)

== ENCOUNTER → 2025-08-25 | Outpatient (CLI) | payer MEDICARE, OTHER ==
[2025-08-25 13:25] LABS: BASO # 0.1 10^3/uL (0.0-0.2); BASO % 0.7 % (0.0-1.0); EOS # 0.4 10^3/uL (0.0-0.5); EOS % 4.5 % (0.0-3.0); LYMPH # 1.8 10^3/uL (1.5-5.0); LYMPH % 20.1 % (24.0-44.0); MONO # 0.7 10^3/uL (0.0-0.8); MONO % 7.4 % (2.0-8.0); NEUTROPHILS # 6.0 10^3/uL (1.5-8.5); NEUTROPHILS % 67.1 % (36.0-66.0); PLATELET COUNT, AUTOMATED 215 10^3/uL (150-450)
[2025-08-25 13:45] LABS: ALT/SGPT 19.0 U/L (7.0-40); AST/SGOT 22.0 U/L (<34); CALCIUM LEVEL 8.8 MG/DL (8.3-10.6); CARBON DIOXIDE LEVEL 30.0 MMOL/L (20-31); CHLORIDE LEVEL 103.0 MMOL/L (98-107); CREATININE FOR GFR 1.52 MG/DL (0.55-1.30); GLOMERULAR FILTRATION RATE 32.8 (>32); POTASSIUM SERUM 4.7 MMOL/L (3.5-5.1); SODIUM LEVEL 143.0 MMOL/L (136-145)
[2025-08-25 13:46] LABS: FREE T4 1.32 NG/DL (0.89-1.76)
== END ==
LOC: M WUC 10:35
PROVIDERS: ATTEND Physician Assistant Medical
DX: N18.4 Chronic kidney disease, stage 4 (severe) (principal); I12.9 Hypertensive chronic kidney disease with stage 1 through stage 4 chronic kidney disease, or unspecified chronic kidney disease; E03.9 Hypothyroidism, unspecified; R30.0 Dysuria; R45.1 Restlessness and agitation